=== PATIENT | male | born 1945 | race Caucasian/White ===

== ENCOUNTER → 2023-10-10 10:54 | Outpatient (REF) | payer OTHER, SELFPAY | LOC: PAVMRI 10:54 | PROVIDERS: ATTENDING PHYSICIAN Orthopaedic Surgery; FAMILY PHYSICIAN Internal Medicine | DX: M54.12 Radiculopathy, cervical region (principal) | CPT/HCPCS: 72141 ==

== ENCOUNTER → 2023-11-14 07:31 | Outpatient (REF) | payer OTHER, SELFPAY ==
[2023-11-14 09:49] LABS: % Basophils 0.2 % (0-2); % Eosinophils 0.3 % (0-6); % Immature Granulocytes 0.8 % (0-0.5); % Lymphocytes 27.4 % (20.5-51.1); % Monocytes 12.7 % (1.7-9.3); % Neutrophils 58.6 % (42.2-75.2); Absolute Immature Granulocytes 0.1 10^3/uL (0-0.05); Absolute Lymphocytes 3.5 10^3/uL (1.2-3.4); Absolute Monocytes 1.6 10^3/uL (0.1-0.6); Absolute Neutrophils 7.5 10^3/uL (1.4-6.5); Hematocrit 38.1 % (39.0-52.0); Hemoglobin 12.5 g/dL (13.0-18.0); Mean Corp Hgb Conc. 32.8 g/dL (33.0-37.0); Mean Corpuscular Hgb 33.1 pg (27.0-31.0); Mean Corpuscular Volume 100.8 fL (80.0-94.0); Mean Platelet Volume 10.1 fL (7.4-10.4); Nucleated Red Blood Cells % 0 % (-); Platelet Count 199 10^3/uL (130-400); Red Blood Cell Count 3.78 10^6/uL (4.70-6.10); Red Cell Dist. Width 12.9 % (11.5-14.5); White Blood Cell Count 12.7 10^3/uL (4.8-10.8)
[2023-11-14 10:00] LABS: Erythrocyte Sed Rate 12 mm/hour (0-20)
[2023-11-14 10:28] LABS: ALT (SGPT) 29 U/L (0-50); AST (SGOT) 21 U/L (17-59); Alkaline Phosphatase 97 U/L (38-126); Blood Urea Nitrogen 25 mg/dl (9-20); Calcium 9.2 mg/dl (8.4-10.2); Carbon Dioxide 29 mmol/L (22-30); Chloride 101 mmol/L (98-107); Glucose 98 mg/dl (70-99); Potassium 3.8 mmol/L (3.5-5.1); Sodium 135 mmol/L (135-145); Total Protein 6.4 g/dl (6.3-8.2); eGFR > 60.00
== END ==
LOC: HWLAB 07:31
PROVIDERS: ATTENDING PHYSICIAN Internal Medicine
DX: R10.9 Unspecified abdominal pain (principal); R19.00 Intra-abdominal and pelvic swelling, mass and lump, unspecified site
CPT/HCPCS: 36415; 80053; 85025; 85652

== ENCOUNTER → 2023-11-19 13:46 | Outpatient (REF) | payer OTHER, SELFPAY | LOC: HWRAD 13:46 | PROVIDERS: ATTENDING PHYSICIAN Internal Medicine | DX: R10.9 Unspecified abdominal pain (principal); R19.00 Intra-abdominal and pelvic swelling, mass and lump, unspecified site | CPT/HCPCS: 74177; Q9967 ==

== ENCOUNTER 2024-02-16 08:25 | Emergency (ER) | payer OTHER, SELFPAY ==
[2024-02-16 08:29] VITALS: BP 138/85
--- NOTE | 2024-02-16 09:21 | ED.GENMED ---
History of Present Illness
<Gabrielle Renae DO, Resident - Last Filed: 02/16/24 11:11>
General
Chief Complaint: Musculo-Skeletal Complaint
Source: patient
Time Seen by Provider: 02/16/24 09:05
History of Present Illness
History of Present Illness:
Pt is a 78 YO M with history of HTN and spinal fusion in october presenting to ED with right sided lower back pain. Since his surgery, he states he has had difficulty managing pain and most recently it has been affecting his sleep. Reports pain to be
07/15 and is currently managed poorly with meloxicam, benazepril, Advil and extra strength tylenol.
Past History
<Gabrielle Renae DO, Resident - Last Filed: 02/16/24 11:11>
Past History
ED Past Medical History: HTN, Other (Kidney stones, BPH) and Other (kidney stones)
ED Past Surgical History: None
Social History
Tobacco: Former smoker
Alcohol: Occasional
Drug: None
Personal:
Living: with family
Family History
Family History: Other (Father with Hodgkin's, mother with AR at 75)
Review of Systems
<Gabrielle Renae DO, Resident - Last Filed: 02/16/24 11:11>
Review of Systems
Constitutional: Reports sleep disturbance
EENT: Reports no symptoms
Respiratory: Reports no symptoms
Cardiac: Reports no symptoms
ABD/GI: Reports no symptoms
: Reports no symptoms
Musculoskeletal: Reports muscle pain, muscle stiffness, back pain and other (Right sided leg stiffness )
Skin: Reports other (incisions healed well, no bruising, pus or blood)
Neurological: Reports other (tingling in feet)
Psychiatric: Reports no symptoms
Phy Exam
<Gabrielle Renae DO, Resident - Last Filed: 02/16/24 11:11>
General Physical Exam
General Presentation: well appearing and no apparent distress
General age: appears stated age
General Skin: warm and dry
General Habitus: normal
General Mental: alert
General Hydration: appears well hydrated
Neurological Exam
Neurological Exam: alert, oriented x3, no motor deficits and no sensory deficits
Musculoskeletal Exam
Musculoskeletal Exam: full ROM and back pain
Skin Exam
Skin Exam: normal color, warm/dry and no rash
Course
<Gabrielle Renae DO, Resident - Last Filed: 02/16/24 11:11>
Orders/Labs/Results
Orders:
Orders
02/16/24 10:55
Oxycodone [Roxicodone] 5 mg PO NOW STA
Vital Signs
Initial and Last Documented VS:
Initial Vital Signs
Temp Pulse BP Pulse Ox
98.8 F 95 138/85 97
02/16/24 08:29 02/16/24 08:29 02/16/24 08:29 02/16/24 08:29
Last Documented Vital Signs
Temp Pulse Resp BP Pulse Ox
98.8 F 68 16 168/90 97
02/16/24 08:29 02/16/24 11:04 02/16/24 11:04 02/16/24 11:04 02/16/24 11:04
Analt;Ricky Hidalgo DO - Last Filed: 02/16/24 14:49>
Orders/Labs/Results
Orders:
Orders
02/16/24 10:55
Oxycodone [Roxicodone] 5 mg PO NOW STA
Vital Signs
Initial and Last Documented VS:
Initial Vital Signs
Temp Pulse BP Pulse Ox
98.8 F 95 138/85 97
02/16/24 08:29 02/16/24 08:29 02/16/24 08:29 02/16/24 08:29
Last Documented Vital Signs
Temp Pulse Resp BP Pulse Ox
98.8 F 68 16 168/90 97
02/16/24 08:29 02/16/24 11:04 02/16/24 11:04 02/16/24 11:04 02/16/24 11:04
<Gabrielle Renae DO, Resident - Last Filed: 02/16/24 11:11>
MDM/Problems Addressed
Differential Diagnosis Includes:
Back spasm, Radiculopathy
MDM/Problems Addressed:
Pt is a 78 YO M presenting to the ED with right sided back pain. He is stable and was given 5 mg Oxycodone in ED.He will be given a script for Gabapentin 100 mg and prednisone for pain management. Referral to Pain Medicine made.
Chronic conditions affecting care:
back pain
Acute Exacerbation and/or Progression of Chronic Illness:
back pain
<Gabrielle Renae DO, Resident - Last Filed: 02/16/24 11:11>
*Pulse Oximetry
Patient hypoxic: no
*EKG
Interpreted by ED Provider?: NA
*Business Education Professor Interpretation
Rate: Business Education Professor- N/A
*Critical Care Note
Total Time (30-74mins, 75-104mins- exclusive of procedures): Not Applicable
ED Attending Note
<Gabrielle Renae DO, Resident - Last Filed: 02/16/24 11:11>
-
Portions of this chart may have been created with voice recognition software.� Occasional wrong word or��sound alike� substitutions may have occurred due to the inherent limitations of voice recognition software.
<Ricky Hidalgo DO - Last Filed: 02/16/24 14:49>
ED Attending Note
Patient seen and examined by attending physician: Yes
I performed a history and physical exam of patient and discussed management with resident, I reviewed resident's note and agree with documented findings and plan of care.: Yes
ED Attending Note:
I agree with the resident's note
Patient complaining of back pain. Patient had several visits for back pain.
Muscle strength intact. Sensation intact.
Adjust medications continue outpatient management
Discharge Plan
Departure
Patient Disposition: Home (Routine Discharge)
Date of Disposition: 02/16/24
Time of Disposition: 11:06
Patient with high blood pressure during this ER visit?: Yes
Condition: Good
Discharge Problem:
Back pain of thoracolumbar region
Instructions: Back Pain, BLOOD PRESSURE
Prescriptions:
New
gabapentin 100 mg capsule
100 mg PO TID Qty: 60 0RF
Rx Instructions:
1 pill a day for 3 days, then 2 pills a day for 3 days then 3 pills a day.
methylprednisolone [Medrol (Chintan)] 4 mg tablets,dose pack
See Rx Instructions .ROUTE .COMPLEX Qty: 21 0RF
Rx Instructions:
for 6 days
No Action
cholecalciferol (vitamin D3) [Vitamin D3] 1,000 UNIT capsule
2,000 unit PO DAILY
[id number]-pxl-[id number]-[id number] [Centrum Silver Men] 1 EACH tablet
1 ea PO DAILY
tamsulosin 0.4 MG capsule
0.8 mg PO DAILY
finasteride 5 MG tablet
5 mg PO DAILY
atorvastatin 10 MG tablet
10 mg PO QPM
amlodipine [Norvasc] 2.5 MG tablet
2.5 mg PO DAILY
aspirin 81 MG tablet,delayed release (DR/EC)
81 mg PO DAILY
benazepril 20 MG tablet
20 mg PO DAILY
meloxicam 7.5 MG tablet
7.5 mg PO DAILY Qty: 14 0RF
Referrals:
Javon Gonzalez MD [Active] - Call in 1-3 days for appt
Joseph Leroy MD [Family Provider] - Call in 1-3 days for appt
Interventions
Interventions:
*Risk Screen - Suicide Last Done: 02/16/24 09:50
*General Assessment Last Done: 02/16/24 09:49
*Neglect/Abuse Screening Last Done: 02/16/24 09:50
ED- Fall Risk Assessment Last Done: 02/16/24 09:51
*ED COVID-19 Vaccine History Last Done: 02/16/24 09:49
*Nursing Disposition Last Done: 02/16/24 11:12
ED-Musculoskeletal Assessment Last Done: 02/16/24 09:51
Discharge Date and Time
Discharge Date/Time: 02/16/24 11:20
Print Language: IRISH
[2024-02-16 09:49] VITALS: BP 159/79
[2024-02-16] MEDS: ROXICODONE 5 MG PO (10:58)
[2024-02-16 11:04] VITALS: BP 168/90
== END 2024-02-16 11:20 | disposition home or self-care (01) ==
LOC: EMR 08:25
PROVIDERS: EMERGENCY PHYSICIAN Emergency Medicine; FAMILY PHYSICIAN Internal Medicine
DX: M54.50 Low back pain, unspecified (principal); M54.6 Pain in thoracic spine; M79.10 Myalgia, unspecified site; I10 Essential (primary) hypertension; Z87.442 Personal history of urinary calculi; N40.0 Benign prostatic hyperplasia without lower urinary tract symptoms; Z79.82 Long term (current) use of aspirin; Z87.891 Personal history of nicotine dependence; Z98.1 Arthrodesis status
CPT/HCPCS: 99283

== ENCOUNTER → 2024-02-18 07:07 | Outpatient (REF) | payer OTHER, SELFPAY ==
[2024-02-18 10:34] LABS: ALT (SGPT) 18 U/L (0-50); AST (SGOT) 20 U/L (17-59); Albumin 3.9 g/dl (3.5-5.0); Alkaline Phosphatase 76 U/L (38-126); Blood Urea Nitrogen 22 mg/dl (9-20); Calcium 9.3 mg/dl (8.4-10.2); Carbon Dioxide 26 mmol/L (22-30); Chloride 104 mmol/L (98-107); Glucose 109 mg/dl (70-99); Potassium 4.3 mmol/L (3.5-5.1); Sodium 137 mmol/L (135-145); Total Bilirubin 1.3 mg/dl (0.2-1.3); Total Protein 6.5 g/dl (6.3-8.2); eGFR > 60.00
[2024-02-18 13:05] LABS: % Basophils 0.2 % (0-2); % Eosinophils 1.5 % (0-6); % Immature Granulocytes 0.4 % (0-0.5); % Lymphocytes 29.2 % (20.5-51.1); % Monocytes 14.2 % (1.7-9.3); % Neutrophils 54.5 % (42.2-75.2); Absolute Eosinophils 0.1 10^3/uL (0-0.7); Absolute Lymphocytes 2.6 10^3/uL (1.2-3.4); Absolute Monocytes 1.3 10^3/uL (0.1-0.6); Absolute Neutrophils 4.9 10^3/uL (1.4-6.5); Hematocrit 35.5 % (39.0-52.0); Hemoglobin 11.8 g/dL (13.0-18.0); Mean Corp Hgb Conc. 33.2 g/dL (33.0-37.0); Mean Corpuscular Hgb 31.7 pg (27.0-31.0); Mean Corpuscular Volume 95.4 fL (80.0-94.0); Mean Platelet Volume 9.9 fL (7.4-10.4); Nucleated Red Blood Cells % 0 % (-); Platelet Count 256 10^3/uL (130-400); Red Blood Cell Count 3.72 10^6/uL (4.70-6.10); Red Cell Dist. Width 13.4 % (11.5-14.5)
== END ==
LOC: HWLAB 07:07
PROVIDERS: ATTENDING PHYSICIAN Internal Medicine
DX: I10 Essential (primary) hypertension (principal); M54.50 Low back pain, unspecified
CPT/HCPCS: 36415; 80053; 85025

== ENCOUNTER → 2024-07-07 10:55 | Outpatient (REF) | payer OTHER, SELFPAY | LOC: EMG 10:55 | PROVIDERS: ATTENDING PHYSICIAN Orthopaedic Surgery; FAMILY PHYSICIAN Internal Medicine | DX: R20.0 Anesthesia of skin (principal) | CPT/HCPCS: 95886; 95911 ==

== ENCOUNTER → 2024-08-01 10:50 | Outpatient (REF) | payer OTHER, SELFPAY ==
[2024-08-01 15:35] LABS: Urine Albumin Negative (Neg - Trace); Urine Bilirubin Negative (Negative); Urine Character Clear (Clear); Urine Color Yellow; Urine Glucose Negative (Negative); Urine Ketone Negative (Negative); Urine Leukocyte Trace (Negative); Urine Nitrite Negative (Negative); Urine Occult Blood Negative (Negative); Urine Specific Gravity 1.025 (<1.030); Urine Urobilinogen Negative (Neg - 1+)
[2024-08-01 16:16] LABS: Urine Mucus Few; Urine Squamous Cell 0-2 /LPF (Few)
[2024-08-01 16:17] LABS: Urine Bacteria Few (Negative); Urine Red Blood Cell 0-2 /HPF (0-2); Urine Sperm Seen; Urine White Cell 0-2 /HPF (0-5)
[2024-08-01 16:18] LABS: Urine Calcium Oxalate Crystals Seen
== END ==
LOC: HWLAB 10:50
PROVIDERS: ATTENDING PHYSICIAN Specialist; FAMILY PHYSICIAN Internal Medicine
DX: N39.0 Urinary tract infection, site not specified (principal)
CPT/HCPCS: 81003; 81015; 87086

== ENCOUNTER → 2024-08-20 07:12 | Outpatient (REF) | payer OTHER, SELFPAY ==
[2024-08-20 09:41] LABS: % Basophils 0.4 % (0-2); % Eosinophils 1.2 % (0-6); % Immature Granulocytes 0.2 % (0-0.5); % Lymphocytes 40.1 % (20.5-51.1); % Neutrophils 43.1 % (42.2-75.2); Absolute Eosinophils 0.1 10^3/uL (0-0.7); Absolute Lymphocytes 2.3 10^3/uL (1.2-3.4); Absolute Monocytes 0.9 10^3/uL (0.1-0.6); Absolute Neutrophils 2.5 10^3/uL (1.4-6.5); Hematocrit 40.1 % (39.0-52.0); Mean Corp Hgb Conc. 32.4 g/dL (33.0-37.0); Mean Corpuscular Hgb 32.8 pg (27.0-31.0); Mean Corpuscular Volume 101.3 fL (80.0-94.0); Nucleated Red Blood Cells % 0 % (-); Platelet Count 154 10^3/uL (130-400); Red Blood Cell Count 3.96 10^6/uL (4.70-6.10); Red Cell Dist. Width 15.4 % (11.5-14.5); White Blood Cell Count 5.7 10^3/uL (4.8-10.8)
[2024-08-20 09:46] LABS: ALT (SGPT) 15 U/L (0-50); AST (SGOT) 24 U/L (17-59); Albumin 4.1 g/dl (3.5-5.0); Alkaline Phosphatase 70 U/L (38-126); Blood Urea Nitrogen 17 mg/dl (9-20); Calcium 9.4 mg/dl (8.4-10.2); Carbon Dioxide 28 mmol/L (22-30); Chloride 103 mmol/L (98-107); Glucose 108 mg/dl (70-99); Sodium 138 mmol/L (135-145); Total Bilirubin 2.2 mg/dl (0.2-1.3); Total Protein 6.7 g/dl (6.3-8.2); eGFR > 60.00
[2024-08-20 10:19] LABS: TSH 4.66 uIU/ml (0.47-4.68)
== END ==
LOC: HWRAD 07:12
PROVIDERS: ATTENDING PHYSICIAN Internal Medicine
DX: I87.8 Other specified disorders of veins (principal); R60.0 Localized edema; T81.49XA Infection following a procedure, other surgical site, initial encounter
CPT/HCPCS: 36415; 71046; 80053; 84443; 85025

== ENCOUNTER → 2024-09-03 07:10 | Outpatient (REF) | payer OTHER, SELFPAY | LOC: HWRAD 07:10 | PROVIDERS: ATTENDING PHYSICIAN Internal Medicine | DX: I87.8 Other specified disorders of veins (principal); T81.49XA Infection following a procedure, other surgical site, initial encounter; R60.0 Localized edema; R14.0 Abdominal distension (gaseous) | CPT/HCPCS: 76700 ==

== ENCOUNTER 2024-09-04 07:10 | Outpatient (RCR) | payer OTHER, SELFPAY | END 2024-09-04 23:59 | disposition home or self-care (01) | LOC: RPT 07:10 | PROVIDERS: ATTENDING PHYSICIAN Specialist; FAMILY PHYSICIAN Internal Medicine | DX: M75.122 Complete rotator cuff tear or rupture of left shoulder, not specified as traumatic (principal); M19.012 Primary osteoarthritis, left shoulder; Z73.6 Limitation of activities due to disability; M62.81 Muscle weakness (generalized); Z98.1 Arthrodesis status | CPT/HCPCS: 97110; 97112; 97162 ==

== ENCOUNTER → 2024-09-10 09:56 | Outpatient (REF) | payer OTHER, SELFPAY ==
[2024-09-10 12:17] LABS: Erythrocyte Sed Rate 10 mm/hour (0-20)
[2024-09-10 12:24] LABS: C-Reactive Protein < 5.00 mg/L (0.0-10.00)
[2024-09-10 18:07] LABS: Rheumatoid Agglutinin Less Than 10 IU (<10 IU)
[2024-09-12 05:15] LABS: Quantiferon Mitogen minus NIL 9.91 IU/mL; Quantiferon NIL 0.09 IU/mL; Quantiferon Plus TB1 minus NIL 0.01 IU/mL (<=0.34); Quantiferon Plus TB2 minus NIL 0.03 IU/mL (<=0.34); Quantiferon TB Gold Plus Negative (Negative)
[2024-09-13 07:48] LABS: ANA, IgG Reflex to HEp-2 Detected (None Detected)
== END ==
LOC: HWLAB 09:56
PROVIDERS: ATTENDING PHYSICIAN Internal Medicine
DX: K75.3 Granulomatous hepatitis, not elsewhere classified (principal); T81 Complications of procedures, not elsewhere classified
CPT/HCPCS: 36415; 82164; 85652; 86038; 86140; 86430; 86480

== ENCOUNTER 2024-10-02 06:17 | Outpatient (RCR) | payer OTHER, SELFPAY | END 2024-10-02 09:48 | disposition home or self-care (01) | LOC: RPT 06:17 | PROVIDERS: ATTENDING PHYSICIAN Specialist; FAMILY PHYSICIAN Internal Medicine | DX: M75.122 Complete rotator cuff tear or rupture of left shoulder, not specified as traumatic (principal); M19.012 Primary osteoarthritis, left shoulder; Z73.6 Limitation of activities due to disability; M62.81 Muscle weakness (generalized); Z98.1 Arthrodesis status | CPT/HCPCS: 97110 ==

== ENCOUNTER → 2024-10-09 09:37 | Outpatient (REF) | payer OTHER, SELFPAY ==
[2024-10-09 13:47] LABS: Complement C3 95 mg/dl (88-165)
[2024-10-11 17:47] LABS: Thyroid Peroxidase Ab (TPO) 0.5 IU/mL (0.0-9.0)
[2024-10-11 18:21] LABS: Thyroglobulin Antibodies <1.5 IU/mL (0.0-4.0)
[2024-10-12 01:37] LABS: ds-DNA Ab, IgG Reflex To Titer 2 IU (0-24)
== END ==
LOC: HWLAB 09:37
PROVIDERS: ATTENDING PHYSICIAN Internal Medicine Rheumatology; FAMILY PHYSICIAN Internal Medicine
DX: R76.8 Other specified abnormal immunological findings in serum (principal)
CPT/HCPCS: 36415; 84432; 86160; 86225; 86235; 86376; 86800